=== PATIENT | female | born 1965 | race Caucasian/White ===

== ENCOUNTER 2022-04-15 13:15 | Emergency (ER) | payer OTHER ==
[2022-04-15 13:46] VITALS: BP 98/57; PULSE 68; RESP 18; TEMP 98; BMI 24.9
[2022-04-15] MEDS ORDERED: ACETAMINOPHEN 500 MG TABLET (FP) PO ONE (14:51)
[2022-04-15] MEDS ORDERED: ACETAMINOPHEN 500 MG TABLET (FP) ONE (14:57)
== END 2022-04-15 16:10 | disposition home or self-care (01) ==
LOC: FER 13:15
DX: J01.10 Acute frontal sinusitis, unspecified (principal)
CPT/HCPCS: 99283-25